=== PATIENT | male | born 1935 | race Caucasian/White ===

== ENCOUNTER 2016-11-10 12:25 | Observation (INO) | payer OTHER, MEDICARE ==
[~2016-11-10 12:25] MED LIST: ASPI81TA82 PO; ATEN-102 PO; ATOR40TA49 PO; CLOP75 PO; DOXY100T PO; PRIL20CA PO; SERT-129 PO; [UNRECOGNIZED DRUG - CODE] EX
[2016-11-10 12:27] VITALS: BP 155/74; PULSE 84; RESP 16; TEMP 98; O2SAT 99
[2016-11-10] MEDS ORDERED: SODIUM CHLORIDE 0.9% FLUSH 10 ML FLUSH IVF PRN (13:15)
--- NOTE | 2016-11-10 13:21 | PD ---
HPI Chief Complaint: Neuro Symptoms/ Deficits Time Seen by Provider: 13:17 Travel History International Travel<30 days: No Contact w/Intl Traveler<30days: No Traveled to known affect area: No History of Present Illness HPI 81-year-old male presents to the emergency department sent by physical therapy and primary care physician for evaluation of altered mental status. The patient states he has a history of dizziness that has been intermittent for several years. He states he was told he has "neurological problems". Patient states about 4 weeks ago, he thought he was coming down with a sinus infection. He was prescribed a Z-Angus. He states that approximately 2 weeks ago, he thought it was coming back and his dumpman prescribed him another Z-Angus. He took his last pill today. The patient states that on Thursday, he was laying in bed when he heard a loud noise. He states that due to history of PTSD , he jumped up. This is causing the fall hitting his nose against a nightstand. He reports subsequent nasal bleed. He denies LOC. He states he was able to get his nose to stop bleeding and washed his linens. His physical therapist thought he was slightly confused this morning and referred him to the emergency department. The patient does live alone. He is alert. He is oriented to person, place. He originally thought the year was 2011, but then realized it was 2017. Patient denies any other falls. No chest pain or shortness of breath. He reports abdominal pain only with coughing. No other symptoms. Patient does have history of CO with stent placement. He states that he takes a full aspirin daily. PFSH Past Medical History Anemia: Yes (IRON DEF) Blood Disorders: No Anxiety: No Depression: No Heart Rhythm Problems: Yes (BRADYCARDIA) Cancer: Yes (SKIN) High Cholesterol: No Chemotherapy: No Chest Pain: Yes Congestive Heart Failure: No Coronary Artery Disease: Yes Diminished Hearing: Yes (QAGAN TAYAGUNGIN, BILAT HEARING AIDS) Endocrine: No GERD: Yes Genitourinary: No Headaches: Yes Hypertension: Yes Immune Disorder: No Kidney Stones: Yes (X3) Neurologic: Yes (NEUROPATHY) Psychiatric: Yes (PSTD) Reproductive: No Respiratory: No Radiation Therapy: No ?: Not Past Surgical History Neurologic Surgery: Yes (BACK) Social History Alcohol Use: Yes (OCC) Tobacco Use: No Substance Use: No Allergies-Medications (Allergen,Severity, Reaction): Coded Allergies: Penicillin (Verified Allergy, Severe, Rash, 10/16/11) Reported Meds & Prescriptions Reported Meds & Active Scripts Active Reported Multiple Vitamin 1 Tab 1 Tab .ROUTE DAILY Protonix (Pantoprazole Sodium) 40 Mg Tab 40 PO DAILY Zoloft (Sertraline HCl) 100 Mg Tab 200 Mg PO DAILY Aspirin 325 Mg Tab 325 Mg PO DAILY Atenolol 50 Mg Tab 50 Mg PO DAILY Review of Systems Except as stated in HPI: all other systems reviewed are Neg Physical Exam Narrative GENERAL: Well-nourished, well-developed elderly male patient, afebrile. SKIN: Focused skin assessment warm/dry. HEAD: Normocephalic. Atraumatic. EYES: No scleral icterus. No injection or drainage. NECK: Supple, trachea midline. No JVD or lymphadenopathy. CARDIOVASCULAR: Regular rate and rhythm without murmurs, gallops, or rubs. RESPIRATORY: Breath sounds equal bilaterally. No accessory muscle use. Lungs sounds are clear to auscultation throughout. GASTROINTESTINAL: Abdomen soft, non-tender, nondistended. MUSCULOSKELETAL: No cyanosis, or edema. Bilateral upper and lower extremity strength 5/5. NEUROLOGICAL: Awake and alert. Cranial nerves II through XII intact. Motor and sensory grossly within normal limits. Five out of 5 muscle strength in all muscle groups. Normal speech. Finger to nose is normal bilaterally. Data Data Last Documented VS Vital Signs Date Time Temp Pulse Resp B/P Pulse Ox O2 Delivery O2 Flow Rate FiO2 11/10/16 14:50 98.1 53 18 137/65 97 Room Air Orders Electrocardiogram (11/10/16 13:15) Complete Blood Count With Diff (11/10/16 13:15) Comprehensive Metabolic Panel (11/10/16 13:15) Creatine Kinase (Cpk) (11/10/16 13:15) Troponin I (11/10/16 13:15) Urinalysis - C+S If Indicated (11/10/16 13:15) Chest, Single Ap (11/10/16 13:15) Ct Brain W/O Iv Contrast(Rout) (11/10/16 13:15) Blood Glucose (11/10/16 13:15) Ecg Monitoring (11/10/16 13:15) Iv Access Insert/Monitor (11/10/16 13:15) Oximetry (11/10/16 13:15) Sodium Chloride 0.9% Flush (Ns Flush) (11/10/16 13:15) Ct Facial Bones W/O Iv Cont (11/10/16 ) Labs Laboratory Tests Test 11/10/16 11/10/16 14:10 14:35 White Blood Count 6.8 TH/MM3 Red Blood Count 5.01 MIL/MM3 Hemoglobin 11.3 GM/DL Hematocrit 35.6 % Mean Corpuscular Volume 71.0 FL Mean Corpuscular Hemoglobin 22.5 PG Mean Corpuscular Hemoglobin 31.6 % Concent Red Cell Distribution Width 18.2 % Platelet Count 266 TH/MM3 Mean Platelet Volume 7.9 FL Neutrophils (%) (Auto) 65.5 % Lymphocytes (%) (Auto) 20.8 % Monocytes (%) (Auto) 9.0 % Eosinophils (%) (Auto) 3.9 % Basophils (%) (Auto) 0.8 % Neutrophils # (Auto) 4.5 TH/MM3 Lymphocytes # (Auto) 1.4 TH/MM3 Monocytes # (Auto) 0.6 TH/MM3 Eosinophils # (Auto) 0.3 TH/MM3 Basophils # (Auto) 0.1 TH/MM3 CBC Comment AUTO DIFF Differential Comment AUTO DIFF CONFIRMED Platelet Estimate NORMAL Platelet Morphology Comment NORMAL Sodium Level 140 MEQ/L Potassium Level 4.2 MEQ/L Chloride Level 106 MEQ/L Carbon Dioxide Level 25.7 MEQ/L Anion Gap 8 MEQ/L Blood Urea Nitrogen 14 MG/DL Creatinine 1.13 MG/DL Estimat Glomerular Filtration 62 ML/MIN Rate Random Glucose 100 MG/DL Calcium Level 9.3 MG/DL Total Bilirubin 0.5 MG/DL Aspartate Amino Transf 30 U/L (AST/SGOT) Alanine Aminotransferase 33 U/L (ALT/SGPT) Alkaline Phosphatase 70 U/L Total Creatine Kinase 216 U/L Troponin I 0.06 NG/ML Total Protein 7.3 GM/DL Albumin 3.6 GM/DL Urine Color YELLOW Urine Turbidity CLEAR Urine pH 5.0 Urine Specific [place] 1.021 Urine Protein TRACE mg/dL Urine Glucose (UA) NEG mg/dL Urine Ketones NEG mg/dL Urine Occult Blood NEG Urine Nitrite NEG Urine Bilirubin NEG Urine Urobilinogen LESS THAN 2.0 MG/DL Urine Leukocyte Esterase NEG Urine RBC 1 /hpf Urine WBC 3 /hpf Urine Sperm RARE Microscopic Urinalysis Comment CATH-CULT NOT IND MDM Medical Decision Making Medical Screen Exam Complete: Yes Emergency Medical Condition: Yes Medical Record Reviewed: Yes Interpretation(s) chest x-ray - CONCLUSION: No acute disease. CT brain - CONCLUSION: Negative for an acute process.. CT facial bones - CONCLUSION: 1. Negative MRI of the face. Exam is limited for lack of intravenous contrast. 2. There is some nonspecific adenopathy in both the right and left neck. Differential Diagnosis Closed head injury versus intracranial abnormality versus contusion versus fracture versus electrolyte abnormality Narrative Course 81 year-old male presents to the emergency department sent by physical therapy for slight confusion and fall on Thursday. EKG, CBC, CMP, troponin, CK, UA are ordered and pending. Chest x-ray is ordered and pending. CT of the brain and facial bones are ordered and pending. EKG shows sinus bradycardia, HR 53, with first degree AV block, no acute ST changes. CBC shows no acute abnormalities. CMP shows no acute abnormalities. CK is 216. Troponin is 0.06. UA is negative for acute infection. Chest x-ray shows no acute disease. CT of the brain is negative. CT of the facial bones is negative for fracture. Patient states he took ASA 325 mg PO this morning. Patient will be admitted for elevated troponin. My attending physician, Dr. Enrique, who agrees with plan and disposition. Residents are paged for admission. Dr. Owusu accepted admission. Diagnosis Primary Impression: Generalized weakness Additional Impression: Elevated troponin Admitting Information Admitting Physician Requests: Yin Contreras November 10, 2016 13:21
--- NOTE | 2016-11-10 13:48 | RADRPT ---
EXAM DATE/TIME: 11/10/2016 13:16 [facility] COMPARISON: No previous studies available for comparison. INDICATIONS : Syncope, congestion, short of breath MEDICAL HISTORY : None. SURGICAL HISTORY : None. ENCOUNTER: Initial ACUITY: 1 day PAIN SCORE: 0/10 LOCATION: Bilateral chest FINDINGS: A single view of the chest demonstrates the lungs to be symmetrically aerated without evidence of mas s, infiltrate or effusion. The cardiomediastinal contours are unremarkable. Bilateral total shoulde r arthroplasties are noted. CONCLUSION: No acute disease. Margarito Beatty MD FACR on November 10, 2016 at 13:45 Board Certified Radiologist. This report was verified electronically.
[2016-11-10 14:24] LABS: AUTOMATED NEUTROPHIL # 4.5 TH/MM3 (1.8-7.7); BASOPHIL # 0.1 TH/MM3 (0-0.2); BASOPHIL % 0.8 % (0.0-2.0); EOSINOPHIL # 0.3 TH/MM3 (0-0.4); EOSINOPHIL % 3.9 % (0.0-4.0); HEMATOCRIT 35.6 % (39.0-51.0); LYMPH % 20.8 % (9.0-44.0); LYMPHOCYTE # 1.4 TH/MM3 (1.0-4.8); MEAN CORPUSCULAR HEMOGLOBIN 22.5 PG (27.0-34.0); MEAN CORPUSCULAR HGB CONC 31.6 % (32.0-36.0); NEUT % 65.5 % (16.0-70.0); PLATELET COUNT 266 TH/MM3 (150-450); RED BLOOD COUNT 5.01 MIL/MM3 (4.50-5.90); RED CELL DISTRIBUTION WIDTH 18.2 % (11.6-17.2); WHITE BLOOD COUNT 6.8 TH/MM3 (4.0-11.0)
[2016-11-10 14:28] LABS: HEMO FLAGS AUTO DIFF
[2016-11-10 14:38] LABS: ANION GAP 8 MEQ/L (5-15); AST (GOT) 30 U/L (15-37); BICARBONATE 25.7 MEQ/L (21.0-32.0); BLOOD UREA NITROGEN 14 MG/DL (7-18); CHLORIDE 106 MEQ/L (98-107); GLOMERULAR FILTRATION RATE 62 ML/MIN (>89); POTASSIUM 4.2 MEQ/L (3.5-5.1); SODIUM (NA) 140 MEQ/L (136-145)
--- NOTE | 2016-11-10 14:41 | RADRPT ---
EXAM DATE/TIME: 11/10/2016 13:47 [facility] COMPARISON: No previous studies available for comparison. INDICATIONS : Altered mental status and fall two days ago. RADIATION DOSE: 44.10 CTDIvol (mGy) MEDICAL HISTORY : Myocardial infarction. hypertension, skin cancer SURGICAL HISTORY : None. ENCOUNTER: Initial ACUITY: 2 days PAIN SCALE: 6/10 LOCATION: Bilateral head TECHNIQUE: Multiple contiguous axial images were obtained of the head. Using automated exposure control and adj ustment of the mA and/or kV according to patient size, radiation dose was kept as low as reasonably a chievable to obtain optimal diagnostic quality images. FINDINGS: CEREBRUM: The ventricles are normal for age. No evidence of midline shift, mass lesion, hemorrhage or acute in farction. No extra-axial fluid collections are seen. POSTERIOR FOSSA: The cerebellum and brainstem are intact. The 4th ventricle is midline. The cerebellopontine angle i s unremarkable. EXTRACRANIAL: The visualized portion of the orbits is intact. SKULL: The calvaria is intact. No evidence of skull fracture. CONCLUSION: Negative for an acute process.. Margarito Beatty MD FACR on November 10, 2016 at 14:39 Board Certified Radiologist. This report was verified electronically.
[2016-11-10 14:43] LABS: ALKALINE PHOSPHATASE 70 U/L (45-117); ALT (GPT) 33 U/L (12-78); CREATINE KINASE 216 U/L (39-308); TOTAL BILIRUBIN ADULT 0.5 MG/DL (0.2-1.0)
[2016-11-10 14:50] VITALS: BP 137/65; PULSE 53; RESP 18; TEMP 98.1; O2SAT 97
--- NOTE | 2016-11-10 14:50 | RADRPT ---
EXAM DATE/TIME: 11/10/2016 13:47 [facility] COMPARISON: No previous studies available for comparison. INDICATIONS : Maxillary pain for one month. RADIATION DOSE: 62.22 CTDIvol (mGy) MEDICAL HISTORY : Myocardial infarction. hypertension, skin cancer SURGICAL HISTORY : None. ENCOUNTER: Initial ACUITY: 1 month PAIN SCORE: 7/10 LOCATION: Bilateral face TECHNIQUE: Volumetric scanning of the facial bones was performed. Using automated exposure contr ol and adjustment of the mA and/or kV according to patient size, radiation dose was kept as low as re asonably achievable to obtain optimal diagnostic quality images. FINDINGS: There is mucoperiosteal thickening in both maxillary sinuses. On this noncontrast study I do not see evidence for an infiltrative process. Lack of intravenous con trast does make detection of subtle abnormalities difficult in this patient with a history skin cance r. Exam with contrast or MRI with contrast would be of benefit if there is strong clinical concern of a neoplastic process particularly arising from one of the facial skin cancers. ORBITS: The orbital and infraorbital osseous structures are intact. The retroconal structures gaming ve a normal configuration. No radiopaque foreign bodies are seen. NASAL BONE: The nasal bone and maxillary spine are intact ZYGOMATIC ARCHES: Symmetric without evidence of fracture. SINUSES: The maxillary, ethmoid and frontal sinuses are intact. No air-fluid levels seen. NASAL CAVITY: The nasal septum is intact and midline. The lacrimal ducts are intact. SOFT TISSUES: No radiopaque foreign bodies seen. No soft-tissue swelling is seen. INTRACRANIAL: No intracranial air seen. CRIBIFORM PLATE: Grossly intact. CONCLUSION: 1. Negative non contrast CT of the face. Exam is limited for lack of intravenous contrast in this pa tient with a history of skin cancer. 2. There is some nonspecific adenopathy in both the right and left neck. 3. If there strong clinical concern of neoplastic process MRI with contrast would be of benefit. Margarito Beatty MD FACR on November 10, 2016 at 14:39 Board Certified Radiologist. This report was verified electronically.
[2016-11-10 15:04] LABS: PLATELET ESTIMATE SMEAR NORMAL (NORMAL); PLATELET MORPHOLOGY NORMAL (NORMAL); SCAN/DIFF AUTO DIFF CONFIRMED
[2016-11-10] MEDS ORDERED: ZOLO100T PO (15:18)
[2016-11-10] MEDS ORDERED: ASPI325T PO (15:18)
[2016-11-10] MEDS ORDERED: MULTTAB67 (15:18)
[2016-11-10] MEDS ORDERED: PROT40TA PO (15:18)
[2016-11-10] MEDS ORDERED: ATEN50TA PO (15:18)
[2016-11-10 15:26] LABS: BLOOD, URINE NEG (NEG); GLUCOSE,URINE NEG (NEG); KETONE, URINE NEG (NEG); NITRITE,URINE NEG (NEG); URINE COLOR YELLOW (YELLW/STRAW)
[2016-11-10 15:28] LABS: COMMENT (UR) CATH-CULT NOT IND; CULTURE IF INDICATED CATH CULTURE NOT IND
[2016-11-10] MEDS ORDERED: ONDANSETRON HCL 4 MG/2 ML VIAL IVP PRN (15:45)
[2016-11-10] MEDS ORDERED: NALOXONE HCL 0.4 MG/ML AMP IV PRN (15:45)
[2016-11-10] MEDS ORDERED: BISACODYL 10 MG SUPP RECTAL PRN (15:45)
[2016-11-10] MEDS ORDERED: SODIUM CHLORIDE 0.9% FLUSH 10 ML FLUSH IV FLUSH PRN (15:45)
--- NOTE | 2016-11-10 15:55 | HHI.HP ---
HPI Service [facility] Primary Care Physician [facility] Admission Diagnosis generalized weakness, elevated troponin Diagnoses: Chief Complaint: AMS, fall, congestion Travel History International Travel<30 Days: No Contact w/Intl Traveler <30 Da: No Traveled to Known Affected Are: No History of Present Illness 81-year-old male with history of CAD with stent, HTN, GERD, iron deficiency anemia, PTSD, GERD, bradycardia, presents from the [place] office today for evaluation of confusion. The patient reports he went to his scheduled physical therapy appointment today that he says was scheduled for 11 AM, however the [facility] had him scheduled for 1 PM. He states he thinks the staff thought he was confused. He then saw his PCP at the [facility] who advised him to come to the ER. The patient states that over the past month he has been battling a sinus infection, completed one Z-Angus a month ago, and finished another Z-Angus today. Patient also states that Thursday morning 11/08 at 5 AM, he was sleeping when he thought he heard a bomb go off, he jumped up out of bed and fell, hit his head on the nightstand with subsequent epistaxis that has now resolved. Denies loss of consciousness or neck pain. He states this episode is consistent with his PTSD "attacks". Patient states he uses a walker at baseline, and has to use a wheelchair for long distances. Patient further describes his sinus infection as constant congestion with occasional rhinitis, scratchy throat, and nonproductive cough. He denies fevers/chills. He denies any chest pain. He reports chronic shortness of breath with exertion, but denies lower extremity edema and orthopnea. He denies any history of CHF. He states he has not had to follow with cardiology as he has had no problems since his stent was placed back in 2011. He has no other medical complaints at this time. Review of Systems Except as stated in HPI: all other systems reviewed are Neg Past Family Social History Past Medical History CAD with stents hypertension GERD iron deficiency anemia skin cancer bradycardia Nephrolithiasis PTSD [place] with bilateral hearing aids Colon polyps Agent orange exposure in the Past Surgical History Cardiac catheterization with stent placement Melanoma resection from the back Total knee arthroplasty of both knees 2006 at [facility] Shoulder replacement bilaterally 2014, 2016 at [facility] Colonoscopy with polyp resection x3 Tonsillectomy (on the day WWII started) Reported Medications Multiple Vitamin 1 Tab 1 Tab .ROUTE DAILY Protonix (Pantoprazole Sodium) 40 Mg Tab 40 PO DAILY Zoloft (Sertraline HCl) 100 Mg Tab 200 Mg PO DAILY Aspirin 325 Mg Tab 325 Mg PO DAILY Atenolol 50 Mg Tab 50 Mg PO DAILY Allergies: Coded Allergies: Penicillin (Verified Allergy, Severe, Rash, 10/16/11) Active Ordered Medications Current Medications Medications (Trade) Dose Ordered Sig/Francisca Route Start Time Stop Time Status Last Admin (NS Flush) 2 ml UNSCH PRN IV FLUSH 11/10/16 15:45 (NS Flush) 2 ml BID IV FLUSH 11/10/16 21:00 (Zofran Inj) 4 mg Q6H PRN IVP 11/10/16 15:45 (Dulcolax Supp) 10 mg DAILY PRN RECTAL 11/10/16 15:45 (Lovenox Inj) 40 mg Q24H SQ 11/10/16 16:00 (Narcan Inj) 0.4 mg UNSCH PRN IV 11/10/16 15:45 Family History Mother with pancreatic cancer Father with diabetes mellitus type 2, with TB Social History Denies tobacco use Occasional alcohol use, has 1 [employer] 1-2x per month Denies illicit drug use Lives alone, has a son who lives locally Uses walker at baseline, and wheelchair for long distances Physical Exam Vital Signs Vital Signs Date Time Temp Pulse Resp B/P Pulse Ox O2 Delivery O2 Flow Rate FiO2 11/10/16 14:50 98.1 53 18 137/65 97 Room Air 11/10/16 13:00 97 Room Air 11/10/16 12:27 98.0 84 16 155/74 99 Physical Exam GENERAL: Well-nourished, well-developed pleasant elderly male patient in NAD. Awake, alert, oriented x4. SKIN: Warm and dry. No rash. HEAD: Normocephalic. Atraumatic. EYES: Pupils equal and round. No scleral icterus. No injection or drainage. ENT: No nasal bleeding or discharge. No nasal mucosa edema/polyps. Mucous membranes pink and moist. Oropharynx clear, no tonsillar edema/exudate. NECK: Supple. Trachea midline. CARDIOVASCULAR: Regular rate and rhythm. S1, S2 noted. No murmur appreciated. RESPIRATORY: No accessory muscle use. Clear to auscultation. Breath sounds equal bilaterally. GASTROINTESTINAL: Abdomen soft, non-tender, nondistended. Normoactive bowel sounds x4. MUSCULOSKELETAL: No obvious deformities. Extremities without clubbing, cyanosis , or edema. NEUROLOGICAL: Awake and alert. No obvious cranial nerve deficits. Motor grossly within normal limits. 5/5 muscle strength in bilateral upper and lower extremities. Normal speech. PSYCHIATRIC: Appropriate mood and affect; insight and judgment normal. Laboratory Laboratory Tests Test 11/10/16 11/10/16 14:10 14:35 White Blood Count 6.8 Red Blood Count 5.01 Hemoglobin 11.3 Hematocrit 35.6 Mean Corpuscular Volume 71.0 Mean Corpuscular Hemoglobin 22.5 Mean Corpuscular Hemoglobin 31.6 Concent Red Cell Distribution Width 18.2 Platelet Count 266 Mean Platelet Volume 7.9 Neutrophils (%) (Auto) 65.5 Lymphocytes (%) (Auto) 20.8 Monocytes (%) (Auto) 9.0 Eosinophils (%) (Auto) 3.9 Basophils (%) (Auto) 0.8 Neutrophils # (Auto) 4.5 Lymphocytes # (Auto) 1.4 Monocytes # (Auto) 0.6 Eosinophils # (Auto) 0.3 Basophils # (Auto) 0.1 CBC Comment AUTO DIFF Differential Comment AUTO DIFF CONFIRMED Platelet Estimate NORMAL Platelet Morphology Comment NORMAL Sodium Level 140 Potassium Level 4.2 Chloride Level 106 Carbon Dioxide Level 25.7 Anion Gap 8 Blood Urea Nitrogen 14 Creatinine 1.13 Estimat Glomerular Filtration 62 Rate Random Glucose 100 Calcium Level 9.3 Total Bilirubin 0.5 Aspartate Amino Transf 30 (AST/SGOT) Alanine Aminotransferase 33 (ALT/SGPT) Alkaline Phosphatase 70 Total Creatine Kinase 216 Troponin I 0.06 Total Protein 7.3 Albumin 3.6 Urine Color YELLOW Urine Turbidity CLEAR Urine pH 5.0 Urine Specific [place] 1.021 Urine Protein TRACE Urine Glucose (UA) NEG Urine Ketones NEG Urine Occult Blood NEG Urine Nitrite NEG Urine Bilirubin NEG Urine Urobilinogen LESS THAN 2.0 Urine Leukocyte Esterase NEG Urine RBC 1 Urine WBC 3 Urine Sperm RARE Microscopic Urinalysis Comment CATH-CULT NOT IND Result Diagram: 11/10/16 1410 11/10/16 1410 Imaging Last Impressions Head CT 11/10/16 1315 Signed Impressions: Service Date/Time: Thursday, November 10, 2016 13:47 - CONCLUSION: Negative for an acute process.. Margarito Beatty MD FACR Chest X-Ray 11/10/16 1315 Signed Impressions: Service Date/Time: Thursday, November 10, 2016 13:16 - CONCLUSION: No acute disease. Margarito Beatty MD FACR Maxillofacial CT 11/10/16 0000 Signed Impressions: Service Date/Time: Thursday, November 10, 2016 13:47 - CONCLUSION: 1. Negative non contrast CT of the face. Exam is limited for lack of intravenous contrast in this patient with a history of skin cancer. 2. There is some nonspecific adenopathy in both the right and left neck. 3. If there strong clinical concern of neoplastic process MRI with contrast would be of benefit. Margarito Beatty MD FACR Assessment and Plan Problem List: (1) Confusion ICD Code: R41.0 Status: Acute (2) Elevated troponin ICD Code: R74.8 Status: Acute Assessment and Plan 81-year-old male with history of CAD with stent, HTN, GERD, iron deficiency anemia, PTSD, GERD, bradycardia, presents from the [place] office today for evaluation of confusion. Acute Confusion: Resolved quickly, patient is now AAOx4. Possibly related to recent fall/PTSD episode vs recent infection vs underlying undiagnosed dementia. Head CT images reviewed, no acute findings. CT maxillofacial unremarkable for acute findings, does show some nonspecific adenopathy at left and right neck. Continue neuro checks. Monitor on telemetry. Elevated Troponin with hx of CAD w/stent: unclear etiology. No chest pain reported. Troponin elevated at 0.06. EKG reviewed, shows sinus joe, HR 54, no acute ST changes. Rule out ACS, Trend serial cardiac enzymes and EKGs. Continue patient's aspirin. Nitro prn and IV morphine prn. O2 prn. Continue patient's BB , decrease atenolol dose to 25mg daily with bradycardia. Sinus Bradycardia: patient reports bradycardia for many years. On atenolol 50mg qd at home, will restart at decreased dose of 25mg qd. Monitor on telemetry. Fall: on Wednesday 11/08. Head and Maxillofacial CT negative as above. Consult PT. Patient uses walker at baseline and wheelchair for long distances. Microcytic Anemia: patient reports history of iron deficiency anemia. Check iron studies in am. Chronic Sinusitis: symptoms seem to be improving, recently completed 2 round of Z-Angus antibiotics. No leukocytosis, afebrile. DVT Prophylaxis: Lovenox Discussed with Dr. Owusu. Discussed Condition With Patient, ER Staff Attending Statement The exam, history, and the medical decision-making described in the above note were completed with the assistance of the mid-level provider. I reviewed and agree with the findings presented. I attest that I had a [id number] encounter with the patient on the same day, and personally performed and documented my assessment and findings in the medical record. Patient denies any current symptoms. Symptoms happened when patient episode PTSD. He denies chest pain, palpitation, shortness of breathing, nausea vomiting or any pain at all. At the moment patient has no complaints. Gen NAD resp CTA B/L Cv RRR. no r/m/g Abd soft NDNT Neuro AAO X 3. CN 2-12 intact. motor and sensory is grossly intact. A/P Acute confusion most likely due to PTSD asymptomatic mild elevated troponin asymptomatic will trend and continue home meds. bradycardia most likely medication induced asymptomatic decrease atenolol as tolerated. will try to keep beta alix since patient has CAD. Isha Ferrell PA-C November 10, 2016 15:55 Sol Owusu MD November 10, 2016 17:23
[2016-11-10] MEDS ORDERED: ENOXAPARIN SODIUM 40 MG/0.4 ML SYRINGE SQ SCH (16:00)
[2016-11-10] MEDS ORDERED: ACETAMINOPHEN/HYDROcodone 325 MG/5 MG TAB PO PRN (17:00)
[2016-11-10] MEDS ORDERED: MORPHINE SULFATE 4 MG/ML INJ IV PRN (17:00)
[2016-11-10] MEDS ORDERED: DOCUSATE SODIUM 100 MG CAP PO PRN (17:00)
[2016-11-10] MEDS ORDERED: ACETAMINOPHEN 325 MG TAB PO PRN (17:00)
[2016-11-10] MEDS ORDERED: NITROGLYCERIN 0.4 MG SL 25 TABS/BTL SL PRN (17:00)
[2016-11-10 17:57] VITALS: RESP 16; O2SAT 96
[2016-11-10 18:17] VITALS: BP 124/63; PULSE 71; RESP 20; TEMP 98.4; O2SAT 96
[2016-11-10 19:29] VITALS: BP 95/54; PULSE 58; RESP 18; TEMP 97.8; O2SAT 97
[2016-11-10] MEDS: SODIUM CHLORIDE 0.9% FLUSH 10 ML FLUSH IV FLUSH SCH (20:50)
[2016-11-10 23:15] VITALS: BP 112/59; PULSE 59; RESP 18; TEMP 98; O2SAT 96
[2016-11-11 04:20] LABS: BASOPHIL # 0.1 TH/MM3 (0-0.2); BASOPHIL % 1.2 % (0.0-2.0); EOSINOPHIL # 0.3 TH/MM3 (0-0.4); EOSINOPHIL % 5.2 % (0.0-4.0); HEMATOCRIT 34.6 % (39.0-51.0); LYMPH % 34.5 % (9.0-44.0); LYMPHOCYTE # 2.1 TH/MM3 (1.0-4.8); MEAN CELL VOLUME 71.7 FL (80.0-100.0); MEAN CORPUSCULAR HEMOGLOBIN 22.2 PG (27.0-34.0); MONO % 9.8 % (0.0-8.0); NEUT % 49.3 % (16.0-70.0); PLATELET COUNT 238 TH/MM3 (150-450); RED BLOOD COUNT 4.83 MIL/MM3 (4.50-5.90); RED CELL DISTRIBUTION WIDTH 18.3 % (11.6-17.2); WHITE BLOOD COUNT 6.2 TH/MM3 (4.0-11.0)
[2016-11-11 04:21] VITALS: BP 114/60; PULSE 52; RESP 18; TEMP 98.6; O2SAT 98
[2016-11-11 04:27] LABS: HEMO FLAGS AUTO DIFF
[2016-11-11 04:58] LABS: ANION GAP 7 MEQ/L (5-15); BICARBONATE 27.7 MEQ/L (21.0-32.0); BLOOD UREA NITROGEN 16 MG/DL (7-18); CHLORIDE 108 MEQ/L (98-107); FERRITIN 15 NG/ML (26-388); GLOMERULAR FILTRATION RATE 59 ML/MIN (>89); POTASSIUM 3.9 MEQ/L (3.5-5.1); SODIUM (NA) 143 MEQ/L (136-145); TRANSFERRIN IRON PROFILE 284 MG/DL (200-360)
[2016-11-11 06:53] LABS: SCAN/DIFF AUTO DIFF CONFIRMED
[2016-11-11 08:04] VITALS: BP 115/65; PULSE 50; RESP 23; TEMP 98; O2SAT 96
[2016-11-11] MEDS ORDERED: ATENOLOL 50 MG TAB PO SCH (09:00)
[2016-11-11] MEDS ORDERED: ATENOLOL 25 MG TAB PO SCH (09:00)
[2016-11-11] MEDS ORDERED: SERTRALINE HCL 100 MG TAB PO SCH (09:00)
[2016-11-11] MEDS ORDERED: ASPIRIN 325 MG TAB PO SCH (09:00)
[2016-11-11] MEDS: SODIUM CHLORIDE 0.9% FLUSH 10 ML FLUSH IV FLUSH SCH (09:24)
[2016-11-11] MEDS ORDERED: PANTOPRAZOLE SOD 40 MG DELAYED RELEASE TAB PO SCH (09:30)
[2016-11-11] MEDS ORDERED: ATEN25TA PO (10:20)
[2016-11-11] MEDS ORDERED: FERR325T PO (10:20)
--- NOTE | 2016-11-11 10:21 | HHI.DCPOC ---
Discharge Care Plan Diagnosis: (1) Elevated troponin (2) Confusion (3) Generalized weakness Goals to Promote Your Health * To prevent worsening of your condition and complications * To maintain your health at the optimal level Directions to Meet Your Goals Take your medications as prescribed Follow your dietary instruction Follow activity as directed Keep your appointments as scheduled Take your immunizations and boosters as scheduled If your symptoms worsen call your PCP, if no PCP go to Urgent Care Center or Emergency Room Smoking is Dangerous to Your Health. Avoid second hand smoke Call the 24-hour hour crisis hotline for domestic abuse at Sol Owusu MD November 11, 2016 10:21
--- NOTE | 2016-11-11 10:22 | HHI.DS ---
Discharge Summary Admission Date November 10, 2016 at 15:32 Discharge Date: November 11, 2016 Admitting Diagnosis generalized weakness, elevated troponin (1) Confusion ICD Code: R41.0 Diagnosis: Principal (2) Elevated troponin ICD Code: R74.8 Diagnosis: Principal (3) Bradycardia ICD Code: R00.1 Diagnosis: Principal Procedures none Brief History - From Admission 81-year-old male with history of CAD with stent, HTN, GERD, iron deficiency anemia, PTSD, GERD, bradycardia, presents from the [place] office today for evaluation of confusion. The patient reports he went to his scheduled physical therapy appointment today that he says was scheduled for 11 AM, however [facility] He states he thinks the staff thought he was confused. He then saw his PCP at the [place] who advised him to come to the ER. The patient states that over the past month he has been battling a sinus infection, completed one Z-Angus a month ago, and finished another Z-Angus today. Patient also states that Thursday morning 11/08 at 5 AM, he was sleeping when he thought he heard a bomb go off, he jumped up out of bed and fell, hit his head on the nightstand with subsequent epistaxis that has now resolved. Denies loss of consciousness or neck pain. He states this episode is consistent with his PTSD "attacks". Patient states he uses a walker at baseline, and has to use a wheelchair for long distances. Patient further describes his sinus infection as constant congestion with occasional rhinitis, scratchy throat, and nonproductive cough. He denies fevers/chills. He denies any chest pain. He reports chronic shortness of breath with exertion, but denies lower extremity edema and orthopnea. He denies any history of CHF. He states he has not had to follow with cardiology as he has had no problems since his stent was placed back in 2011. He has no other medical complaints at this time. CBC/BMP: 11/11/16 0352 11/11/16 0352 Significant Findings Laboratory Tests Test 11/10/16 11/10/16 11/10/16 11/11/16 14:10 14:35 21:20 03:52 Hemoglobin 11.3 GM/DL 10.7 GM/DL (13.0-17.0) (13.0-17.0) Hematocrit 35.6 % 34.6 % (39.0-51.0) (39.0-51.0) Mean Corpuscular Volume 71.0 FL 71.7 FL (80.0-100.0) (80.0-100.0) Mean Corpuscular Hemoglobin 22.5 PG 22.2 PG (27.0-34.0) (27.0-34.0) Mean Corpuscular Hemoglobin 31.6 % 31.0 % Concent (32.0-36.0) (32.0-36.0) Red Cell Distribution Width 18.2 % 18.3 % (11.6-17.2) (11.6-17.2) Monocytes (%) (Auto) 9.0 % (0.0-8.0) 9.8 % (0.0-8.0) Estimat Glomerular Filtration 62 ML/MIN (>89) 59 ML/MIN (>89) Rate Troponin I 0.06 NG/ML 0.06 NG/ML (0.02-0.05) (0.02-0.05) Urine Sperm RARE (NONE) Eosinophils (%) (Auto) 5.2 % (0.0-4.0) Chloride Level 108 MEQ/L (98-107) Random Glucose 108 MG/DL (74-106) Iron Level 24 MCG/DL (65-175) Percent Iron Saturation 6.0 % (20-50) Ferritin 15 NG/ML (26-388) Imaging Last Impressions Head CT 11/10/161314 Signed Impressions: Service Date/Time: Thursday, November 10, 2016 13:47 - CONCLUSION: Negative for an acute process.. Margarito Beatty MD FACR Chest X-Ray 11/10/161314 Signed Impressions: Service Date/Time: Thursday, November 10, 2016 13:16 - CONCLUSION: No acute disease. Margarito Beatty MD FACR Maxillofacial CT 11/10/16 0000 Signed Impressions: Service Date/Time: Thursday, November 10, 2016 13:47 - CONCLUSION: 1. Negative non contrast CT of the face. Exam is limited for lack of intravenous contrast in this patient with a history of skin cancer. 2. There is some nonspecific adenopathy in both the right and left neck. 3. If there strong clinical concern of neoplastic process MRI with contrast would be of benefit. Margarito Beatty MD FACR PE at Discharge GENERAL: in NAD NECK: Supple, trachea midline. No JVD or lymphadenopathy. CARDIOVASCULAR: Regular rate and rhythm without murmurs, gallops, or rubs. RESPIRATORY: Breath sounds equal bilaterally. No accessory muscle use. GASTROINTESTINAL: Abdomen soft, non-tender, nondistended. MUSCULOSKELETAL: No cyanosis, or edema. BACK: Nontender without obvious deformity. No CVA tenderness. Pt update on day of discharge Follow-up for acute confusion that resolved before his hospitalization. Patient has no complaints he stated that he is doing extremely well. Denies any chest pain, palpitation, soreness of breathing. Patient is ambulating in hallways by himself. He stated when he is ambulating he is also asymptomatic. Patient stated that he was put on atenolol secondary to arrhythmias. Hospital Course 81-year-old male with history of CAD with stent, HTN, GERD, iron deficiency anemia, PTSD, GERD, bradycardia, presents from the [place] office today for evaluation of confusion. Acute Confusion: Resolved quickly, patient is now AAOx4. Possibly related to recent fall/PTSD episode vs recent infection vs underlying undiagnosed dementia. Head CT images reviewed, no acute findings. CT maxillofacial unremarkable for acute findings, does show some nonspecific adenopathy at left and right neck. Continue neuro checks. No events over telemetry. Although there are lots of artifact over his telemetry. I discussed this with the nurse operations research manager and charge nurse in regards to this and stated that this needs to be corrected. Patient was completely asymptomatic during his hospitalization. Elevated Troponin with hx of CAD w/stent: unclear etiology. No chest pain reported. Troponin elevated at 0.06. EKG reviewed, shows sinus joe, HR 54, no acute ST changes. Rule out ACS, Trend serial cardiac enzymes and EKGs. Continue patient's aspirin. Nitro prn and IV morphine prn. O2 prn. During his hospitalization he was asymptomatic. Troponins were stable and last from was 0.05.. Sinus Bradycardia: patient reports bradycardia for many years. On atenolol 50mg qd at home, so his doses was decreased to 25 mg by mouth daily. Patient was asymptomatic. Atenolol was continued due to his history of arrhythmias and per patient his PCP wants him to remain on atenolol. Patient told to follow-up with his PCP in regards to this. Fall: on Wednesday 11/08. Head and Maxillofacial CT negative as above. Patient uses walker at baseline and wheelchair for long distances. PT was consulted and patient was walking down the hallways no difficulty. Per PT they recommend a wheeled walker which patient does have a home already. Microcytic Anemia: patient reports history of iron deficiency anemia. Iron studies were completed with suggests iron deficiency anemia. Patient was started on iron supplements. Chronic Sinusitis: symptoms seem to be improving, recently completed 2 round of Z-Angus antibiotics. No leukocytosis, afebrile. Pt Condition on Discharge: Good Discharge Disposition: Discharge Home Discharge Time: > 30 minutes Discharge Instructions DIET: Follow Instructions for: Heart Healthy Diet Activities you can perform: Regular-No Restrictions Follow up Referrals: PCP Follow-up - 1 Week New Medications: Ferrous Sulfate (Ferrous Sulfate) 325 Mg Tab 325 MG PO BID iron deficency anemia #30 Ref 0 TAB Atenolol (Atenolol) 25 Mg Tab 25 MG PO DAILY abnormal rythm #30 Ref 0 TAB Continued Medications: Aspirin (Aspirin) 325 Mg Tab 325 MG PO DAILY #30 Ref 0 TAB Multiple Vitamin (Multiple Vitamin) 1 Tab 1 TAB .ROUTE DAILY Nutritional Supplement Ref 0 TAB Pantoprazole (Protonix) 40 Mg Tab 40 PO DAILY Reflux #30 Ref 0 TAB Sertraline (Zoloft) 100 Mg Tab 200 MG PO DAILY #30 Ref 0 TAB Discontinued Medications: Atenolol (Atenolol) 50 Mg Tab 50 MG PO DAILY Blood Pressure Management #30 Ref 0 TAB Sol Owusu MD November 11, 2016 10:22
[2016-11-11] MEDS ORDERED: FERROUS SULFATE 325 MG (65 MG ELEMENTAL IRON) TAB PO SCH (12:00)
--- NOTE | 2016-11-11 17:11 | EKG ---
Date Performed: 11/10/2016 Time Performed: 14:42:16 PTAGE: 81 years EKG: SINUS BRADYCARDIA WITH FIRST DEGREE AV BLOCK VOLTAGE CRITERIA FOR LVH INFERIOR MYOCARDIAL I NFARCTION ABNORMAL ECG Compared to PREVIOUS TRACING , the first degree AV block is now more prominent with longer [place] interva ls at 316 milliseconds. PREVIOUS TRACING on 10/17/2011 05.58.32 DOCTOR: Luci Clay Interpretating Date/Time 11/11/2016 17:11:01
== END 2016-11-11 11:29 | disposition home or self-care (01) ==
LOC: NEPD 12:25 → NEDA 15:32 → NEPGCP 18:00
PROVIDERS: ADMIT Family Medicine; ATTEND Family Medicine
DX: R41.0 Disorientation, unspecified (principal); R79.89 Other specified abnormal findings of blood chemistry; R00.1 Bradycardia, unspecified; D50.9 Iron deficiency anemia, unspecified; J32.9 Chronic sinusitis, unspecified; F43.10 Post-traumatic stress disorder, unspecified; I25.2 Old myocardial infarction; I25.10 Atherosclerotic heart disease of native coronary artery without angina pectoris; I10 Essential (primary) hypertension; K21.9 Gastro-esophageal reflux disease without esophagitis; G62.9 Polyneuropathy, unspecified; Z95.5 Presence of coronary angioplasty implant and graft; Z85.820 Personal history of malignant melanoma of skin; Z96.612 Presence of left artificial shoulder joint; Z96.611 Presence of right artificial shoulder joint; Z79.82 Long term (current) use of aspirin; Z88.0 Allergy status to penicillin; Z85.828 Personal history of other malignant neoplasm of skin; Z91.81 History of falling
CPT/HCPCS: 70450; 70486; 71010; 80048; 80053; 81001; 82550; 82728; 83540; 83550; 84484; 85025; 93005; 97162; 99285; G0378; G8987; G8988; J1650

== ENCOUNTER 2017-12-15 16:39 | Inpatient (IN) | payer MEDICARE, OTHER ==
[~2017-12-15] VITALS: Ht 177.8 cm; Wt 89.2 kg
[~2017-12-15 16:39] MED LIST changes: +ASPI-183 PO; -ASPI81TA82 PO; -ATEN-102 PO; +ATEN25TA PO; -ATOR40TA49 PO; -CLOP75 PO; -DOXY100T PO; +FERR325T PO; +MULTTAB67; -PRIL20CA PO; +PROT40TA PO; -SERT-129 PO; +ZOLO100T PO; -[UNRECOGNIZED DRUG - CODE] EX
[2017-12-15 16:45] VITALS: BP 136/103; PULSE 112; RESP 16; O2SAT 98
[2017-12-15] MEDS ORDERED: FERR325T18 PO (16:55)
[2017-12-15] MEDS ORDERED: ASPI81CH6 CHEW (16:55)
[2017-12-15] MEDS ORDERED: CURCPOW (16:55)
[2017-12-15] MEDS ORDERED: SODIUM CHLORID 0.9% 500 ML INJ 500 ML IV ONE (17:00)
[2017-12-15] MEDS ORDERED: SODIUM CHLORIDE 0.9% FLUSH 10 ML FLUSH IVF PRN (17:00)
[2017-12-15] MEDS ORDERED: ASPIRIN 81 MG CHEW TAB PO ONE (17:00)
--- NOTE | 2017-12-15 17:00 | PD ---
HPI Chief Complaint: Syncope/Near-Syncope Time Seen by Provider: 16:43 Travel History International Travel<30 days: No Contact w/Intl Traveler<30days: No Traveled to known affect area: No History of Present Illness HPI The patient is a 82-year-old male who presents to the emergency department for low heart rate associated with lightheadedness, dizziness, mild shortness of breath. The patient states he noticed his heart rate was low earlier today, between 40 and 50, most of the day. The patient states he would stand upright and he would get slightly lightheaded, mild shortness of breath when he was walking from the parking lot into the emergency department. He denies any chest pain. He does note a history of fast and slow heartbeats in the past, however, does not currently have a pacemaker in place. The patient is followed at the [place] [facility]. He denies any chest pain, shortness breath, nausea, vomiting, or diaphoresis upon interviewing room [place] [id number]. He denies any history of pulmonary embolism, DVT, recent lower extremity edema. Symptoms are moderate. There are no current alleviating or exacerbating factors. 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 ) Cardiac Catheterization: Yes Cardiovascular Problems: Yes High Cholesterol: No Chemotherapy: No Chest Pain: Yes Congestive Heart Failure: No Coronary Artery Disease: Yes Diabetes: No Diminished Hearing: Yes (uses hearing aides) Endocrine: No GERD: Yes Genitourinary: No Headaches: Yes Hypertension: Yes Immune Disorder: No Kidney Stones: Yes Musculoskeletal: Yes (bilat knee and shoulder replaced) Neurologic: Yes (NEUROPATHY) Psychiatric: Yes (PSTD) Reproductive: No Respiratory: No Immunizations Current: Yes Myocardial Infarction: Yes Radiation Therapy: No Past Surgical History Cardiac Surgery: Yes (stent ) Eye Surgery: Yes (cataracts removed) Genitourinary Surgery: Yes (kidney stones) Neurologic Surgery: Yes (BACK) Oral Surgery: Yes (tonsillectomy) Tonsillectomy: Yes Social History Alcohol Use: Yes Tobacco Use: No Substance Use: No Allergies-Medications (Allergen,Severity, Reaction): Coded Allergies: penicillin G (Unverified Allergy, Severe, Rash, 12/15/17) atorvastatin (Verified Allergy, Unknown, 12/15/17) levofloxacin (Verified Allergy, Unknown, 12/15/17) simvastatin (Verified Allergy, Unknown, 12/15/17) Reported Meds & Prescriptions Reported Meds & Active Scripts Active Reported Curcumin (Turmeric (Curcuma Longa) (Bulk) 95 % Pow Ferrous Sulfate 325 Mg (65 Mg Iron) Tablet 325 Mg PO DAILY Aspirin Low Dose (Aspirin) 81 Mg Chew 81 Mg CHEW DAILY Multiple Vitamin 1 Tab 1 Tab .ROUTE DAILY Protonix (Pantoprazole Sodium) 40 Mg Tab 40 PO DAILY Zoloft (Sertraline HCl) 100 Mg Tab 200 Mg PO DAILY Review of Systems Except as stated in HPI: all other systems reviewed are Neg General / Constitutional: No: Fever Cardiovascular: Positive: Tachycardia, Other (Heart rate in the 40s and 50s earlier today), No: Chest Pain or Discomfort, Diaphoresis Respiratory: Positive: Shortness of Breath (Shortness of breath while walking from the parking lot into the emergency department, resolved) Gastrointestinal: No: Nausea, Vomiting, Abdominal Pain Musculoskeletal: No: Edema Neurologic: No: Syncope, Focal Abnormalities Physical Exam Narrative GENERAL: Awake, alert, pleasant 82-year-old male who appears his stated age and is in no acute respiratory distress. SKIN: Focused skin assessment warm/dry. HEAD: Atraumatic. Normocephalic. EYES: No injection or drainage. ENT: No nasal bleeding or discharge. Mucous membranes pink and moist. NECK: Trachea midline. No JVD. CARDIOVASCULAR: Regular, tachycardic with a heart rate of 110. RESPIRATORY: No accessory muscle use. Clear to auscultation. Breath sounds equal bilaterally. GASTROINTESTINAL: Abdomen soft, non-tender, nondistended. No rebound tenderness. MUSCULOSKELETAL: No obvious deformities. No clubbing. No cyanosis. No edema. NEUROLOGICAL: Awake and alert. No obvious cranial nerve deficits. Motor grossly within normal limits. Normal speech. Nonfocal. Oriented 4. PSYCHIATRIC: Appropriate mood and affect; insight and judgment normal. Data Data Last Documented VS Vital Signs Date Time Temp Pulse Resp B/P (MAP) Pulse Ox O2 Delivery O2 Flow Rate FiO2 12/15/17 17:28 115/82 (93) 130/74 (92) 12/15/17 17:28 70 126 12/15/17 17:09 98.7 12/15/17 16:45 16 98 Orders Orders Electrocardiogram (12/15/17 16:54) B-Type Natriuretic Peptide (12/15/17 16:54) Ckmb (Isoenzyme) Profile (12/15/17 16:54) Complete Blood Count With Diff (12/15/17 16:54) Comprehensive Metabolic Panel (12/15/17 16:54) Magnesium (Mg) (12/15/17 16:54) Prothrombin Time / Inr (Pt) (12/15/17 16:54) Act Partial Throm Time (Ptt) (12/15/17 16:54) Troponin I (12/15/17 16:54) Ecg Monitoring (12/15/17 16:54) Bilateral Bp Monitoring (12/15/17 16:54) Iv Access Insert/Monitor (12/15/17 16:54) Oximetry (12/15/17 16:54) Oxygen Administration (12/15/17 16:54) Aspirin Chew (Aspirin Chew) (12/15/17 17:00) Sodium Chloride 0.9% Flush (Ns Flush) (12/15/17 17:00) Sodium Chlorid 0.9% 500 Ml Inj (Ns 500 M (12/15/17 17:00) Chest, Pa & Lat (12/15/17 16:54) Orthostatic Vital Signs (12/15/17 16:54) Electrocardiogram (12/15/17 ) CKMB (12/15/17 16:55) CKMB% (12/15/17 16:55) Admit Order (Ed Use Only) (12/15/17 18:37) Labs Laboratory Tests Test 12/15/17 16:55 White Blood Count 9.7 TH/MM3 Red Blood Count 5.82 MIL/MM3 Hemoglobin 15.9 GM/DL Hematocrit 47.4 % Mean Corpuscular Volume 81.4 FL Mean Corpuscular Hemoglobin 27.3 PG Mean Corpuscular Hemoglobin Concent 33.5 % Red Cell Distribution Width 17.3 % Platelet Count 244 TH/MM3 Mean Platelet Volume 8.0 FL Neutrophils (%) (Auto) 62.9 % Lymphocytes (%) (Auto) 27.2 % Monocytes (%) (Auto) 6.9 % Eosinophils (%) (Auto) 2.3 % Basophils (%) (Auto) 0.7 % Neutrophils # (Auto) 6.1 TH/MM3 Lymphocytes # (Auto) 2.6 TH/MM3 Monocytes # (Auto) 0.7 TH/MM3 Eosinophils # (Auto) 0.2 TH/MM3 Basophils # (Auto) 0.1 TH/MM3 CBC Comment DIFF FINAL Differential Comment Prothrombin Time 10.4 SEC Prothromb Time International Ratio 1.0 RATIO Activated Partial Thromboplast Time 26.9 SEC Blood Urea Nitrogen 14 MG/DL Creatinine 1.19 MG/DL Random Glucose 172 MG/DL Total Protein 8.2 GM/DL Albumin 4.4 GM/DL Calcium Level 9.6 MG/DL Magnesium Level 2.2 MG/DL Alkaline Phosphatase 76 U/L Aspartate Amino Transf (AST/SGOT) 22 U/L Alanine Aminotransferase (ALT/SGPT) 33 U/L Total Bilirubin 0.9 MG/DL Sodium Level 138 MEQ/L Potassium Level 3.5 MEQ/L Chloride Level 103 MEQ/L Carbon Dioxide Level 22.6 MEQ/L Anion Gap 12 MEQ/L Estimat Glomerular Filtration Rate 58 ML/MIN Total Creatine Kinase 101 U/L Creatine Kinase MB 2.8 NG/ML Troponin I 0.02 NG/ML B-Type Natriuretic Peptide 46 PG/ML MDM Medical Decision Making Medical Screen Exam Complete: Yes Emergency Medical Condition: Yes Medical Record Reviewed: Yes Interpretation(s) EKG reveals supraventricular tachycardia with a heart rate of 110. No obvious P -wave. Q-wave noted in lead III and aVF. EKG #2 reveals sinus rhythm with possible second-degree block versus first- degree block with significant prolonged NJ interval and underlying sinus arrhythmia. Last Impressions Chest X-Ray 12/15/17 1004 Signed Impressions: CONCLUSION: 1. No evidence of acute cardiopulmonary process. 2. Status post bilateral shoulder replacements. Laboratory Tests Test 12/15/17 16:55 White Blood Count 9.7 TH/MM3 Red Blood Count 5.82 MIL/MM3 Hemoglobin 15.9 GM/DL Hematocrit 47.4 % Mean Corpuscular Volume 81.4 FL Mean Corpuscular Hemoglobin 27.3 PG Mean Corpuscular Hemoglobin Concent 33.5 % Red Cell Distribution Width 17.3 % Platelet Count 244 TH/MM3 Mean Platelet Volume 8.0 FL Neutrophils (%) (Auto) 62.9 % Lymphocytes (%) (Auto) 27.2 % Monocytes (%) (Auto) 6.9 % Eosinophils (%) (Auto) 2.3 % Basophils (%) (Auto) 0.7 % Neutrophils # (Auto) 6.1 TH/MM3 Lymphocytes # (Auto) 2.6 TH/MM3 Monocytes # (Auto) 0.7 TH/MM3 Eosinophils # (Auto) 0.2 TH/MM3 Basophils # (Auto) 0.1 TH/MM3 CBC Comment DIFF FINAL Differential Comment Prothrombin Time 10.4 SEC Prothromb Time International Ratio 1.0 RATIO Activated Partial Thromboplast Time 26.9 SEC Blood Urea Nitrogen 14 MG/DL Creatinine 1.19 MG/DL Random Glucose 172 MG/DL Total Protein 8.2 GM/DL Albumin 4.4 GM/DL Calcium Level 9.6 MG/DL Magnesium Level 2.2 MG/DL Alkaline Phosphatase 76 U/L Aspartate Amino Transf (AST/SGOT) 22 U/L Alanine Aminotransferase (ALT/SGPT) 33 U/L Total Bilirubin 0.9 MG/DL Sodium Level 138 MEQ/L Potassium Level 3.5 MEQ/L Chloride Level 103 MEQ/L Carbon Dioxide Level 22.6 MEQ/L Anion Gap 12 MEQ/L Estimat Glomerular Filtration Rate 58 ML/MIN Total Creatine Kinase 101 U/L Creatine Kinase MB 2.8 NG/ML Troponin I 0.02 NG/ML B-Type Natriuretic Peptide 46 PG/ML Differential Diagnosis Differential diagnosis includes sick sinus syndrome, medication side effect, pulmonary embolism, hyperthyroidism, dysrhythmia, near syncope, electrolyte abnormality. Narrative Course IV was established, labs are drawn and sent, and the patient was placed on cardiac telemetry monitoring and continuous pulse oximetry monitoring. EKG was ordered and interpreted. The patient was administered aspirin. Chest x-ray was obtained. Orthostatic vital signs were obtained and the patient was administered 500 cc of normal saline. Chest x-ray is unremarkable. Labs are unremarkable. The patient's heart rate slowed down an EKG was performed once again which reveals a sinus arrhythmia with first-degree AV block versus sinus rhythm with second-degree AV block Mobitz type II. The patient recently underwent a workup on the blue team at the [place] [facility] and wore monitor for 2 weeks to evaluate if he needs a pacemaker. He has not followed up with a physician as of yet for the results. The patient has had some presyncopal symptoms with episodes of bradycardia and tachycardia, possibly could have underlying sick sinus syndrome. Therefore, the patient will be admitted, placed on cardiac telemetry monitoring, and may be benefited by cardiology consultation. The patient is comfortable with this plan of care. Physician Communication Physician Communication I discussed the patient with the mid-level provider for [facility] who agrees with admission to Dr. Terrell. Diagnosis Primary Impression: Dysrhythmia Qualified Codes: I49.9 - Cardiac arrhythmia, unspecified Additional Impressions: Heart block Near syncope Admitting Information Admitting Physician Requests: Admit Condition: Stable Jesse Avery MD Dec 15, 2017 17:00
[2017-12-15 17:09] VITALS: TEMP 98.7
[2017-12-15 17:11] LABS: AUTOMATED NEUTROPHIL # 6.1 TH/MM3 (1.8-7.7); BASOPHIL # 0.1 TH/MM3 (0-0.2); BASOPHIL % 0.7 % (0.0-2.0); EOSINOPHIL # 0.2 TH/MM3 (0-0.4); EOSINOPHIL % 2.3 % (0.0-4.0); HEMATOCRIT 47.4 % (39.0-51.0); HEMOGLOBIN 15.9 GM/DL (13.0-17.0); LYMPH % 27.2 % (9.0-44.0); LYMPHOCYTE # 2.6 TH/MM3 (1.0-4.8); MEAN CELL VOLUME 81.4 FL (80.0-100.0); MEAN CORPUSCULAR HEMOGLOBIN 27.3 PG (27.0-34.0); MEAN CORPUSCULAR HGB CONC 33.5 % (32.0-36.0); MONO % 6.9 % (0.0-8.0); MONOCYTE # 0.7 TH/MM3 (0-0.9); NEUT % 62.9 % (16.0-70.0); PLATELET COUNT 244 TH/MM3 (150-450); RED BLOOD COUNT 5.82 MIL/MM3 (4.50-5.90); RED CELL DISTRIBUTION WIDTH 17.3 % (11.6-17.2); WHITE BLOOD COUNT 9.7 TH/MM3 (4.0-11.0)
[2017-12-15 17:24] LABS: PROTHROMBIN TIME - PATIENT 10.4 SEC (9.8-11.6)
[2017-12-15 17:28] VITALS: BP_SYST 101; BP_SYST 115; BP_SYST 130; BP_SYST 135; BP_DIAS 60; BP_DIAS 71; BP_DIAS 74; BP_DIAS 82
[2017-12-15 17:29] LABS: ALBUMIN 4.4 GM/DL (3.4-5.0); ALT (GPT) 33 U/L (12-78); AST (GOT) 22 U/L (15-37); BICARBONATE 22.6 MEQ/L (21.0-32.0); BLOOD UREA NITROGEN 14 MG/DL (7-18); CALCIUM 9.6 MG/DL (8.5-10.1); CHLORIDE 103 MEQ/L (98-107); CREATININE 1.19 MG/DL (0.60-1.30); GLOMERULAR FILTRATION RATE 58 ML/MIN (>89); GLUCOSE,RANDOM 172 MG/DL (74-106); MAGNESIUM 2.2 MG/DL (1.5-2.5); SODIUM (NA) 138 MEQ/L (136-145)
[2017-12-15 17:34] LABS: ALKALINE PHOSPHATASE 76 U/L (45-117); TOTAL BILIRUBIN ADULT 0.9 MG/DL (0.2-1.0); TOTAL PROTEIN 8.2 GM/DL (6.4-8.2); TROPONIN I 0.02 NG/ML (0.02-0.05)
--- NOTE | 2017-12-15 17:40 | RADRPT ---
EXAM DATE: 12/15/2017 5:19 PM EDT AGE/SEX: 82 years / Male INDICATIONS: Chest pain. CLINICAL DATA: This is the patient's initial encounter. Patient reports that signs and symptoms have been present for 1 day and indicates a pain score of 6/10. MEDICAL/SURGICAL HISTORY: . Myocardial infarction. hypertension, skin cancer None. COMPARISON: No prior exams available for comparison. FINDINGS: PA and lateral views of the chest demonstrate the lungs to be symmetrically aerated without evidence of mass, infiltrate or effusion. The cardiomediastinal contours are unremarkable. Bilateral shoulder arthroplasties are noted. Osseous structures are otherwise intact. CONCLUSION: 1. No evidence of acute cardiopulmonary process. 2. Status post bilateral shoulder replacements. Electronically signed by: Esteban Rubio MD 12/15/2017 5:39 PM EDT
[2017-12-15] MEDS ORDERED: ACETAMINOPHEN 325 MG TAB PO PRN (18:45)
[2017-12-15] MEDS ORDERED: MAGNESIUM HYDROXIDE SUSP 30 ML CUP PO PRN (18:45)
[2017-12-15] MEDS ORDERED: LACTULOSE SYRUP 20 GM/30 ML CUP PO PRN (18:45)
[2017-12-15] MEDS ORDERED: SENNOSIDES 8.6 MG TAB PO PRN (18:45)
[2017-12-15] MEDS ORDERED: BISACODYL 10 MG SUPP RECTAL PRN (18:45)
[2017-12-15] MEDS ORDERED: NALOXONE HCL 0.4 MG/ML AMP IV PUSH PRN (18:45)
[2017-12-15] MEDS ORDERED: ONDANSETRON ODT 4 MG TAB PO PRN (18:45)
[2017-12-15 19:00] VITALS: BP 143/77; PULSE 63; RESP 16; O2SAT 97
[2017-12-15] MEDS ORDERED: ENOXAPARIN SODIUM 30 MG/0.3 ML SYRINGE SQ SCH (20:00)
[2017-12-15] MEDS: PANTOPRAZOLE SOD 40 MG DELAYED RELEASE TAB PO SCH (20:07)
--- NOTE | 2017-12-15 20:12 | HHI.HP ---
[facility] Service [facility] Primary Care Physician [facility] Admission Diagnosis Dysrhythmia, sick sinus syndrome versus second-degree AV block, near Diagnoses: Travel History International Travel<30 Days: No Contact w/Intl Traveler <30 Da: No Traveled to Known Affected Are: No History of Present Illness 82-year-old male with a past medical history significant for sick sinus syndrome , PTSD and GERD presents to the emergency department for evaluation of low heart rate. The patient reports he has a history of bradycardia and checks his pulse daily per [place] instructions. Patient reports that when he checked his pulse earlier today it was in the 40s and did not elevate over 51. He reports dizziness, worse when he got out of the car after driving himself to the hospital. He denies any syncopal episodes. No shortness of breath. No palpitations. No chest pain. No abdominal pain. No nausea/vomiting/diarrhea. No fever/chills. No lateralizing signs/symptoms. Review of Systems Except as stated in HPI: all other systems reviewed are Neg Past Family Social History Past Medical History sick sinus syndrome, PTSD and GERD Past Surgical History Bilateral rotator cuff repair Bilateral knee replacement Appendectomy Dupuytren's contracture surgery Tonsillectomy Reported Medications Reported Meds & Active Scripts Active Reported Curcumin (Turmeric (Curcuma Longa) (Bulk) 95 % Pow Ferrous Sulfate 325 Mg (65 Mg Iron) Tablet 325 Mg PO DAILY Aspirin Low Dose (Aspirin) 81 Mg Chew 81 Mg CHEW DAILY Multiple Vitamin 1 Tab 1 Tab .ROUTE DAILY Protonix (Pantoprazole Sodium) 40 Mg Tab 40 PO DAILY Zoloft (Sertraline HCl) 100 Mg Tab 200 Mg PO DAILY Allergies: Coded Allergies: penicillin G (Unverified Allergy, Severe, Rash, 12/15/17) atorvastatin (Verified Allergy, Unknown, 12/15/17) levofloxacin (Verified Allergy, Unknown, 12/15/17) simvastatin (Verified Allergy, Unknown, 12/15/17) Family History Father with diabetes mellitus Social History Occasional alcohol. Denies tobacco and illicit drugs. Physical Exam Vital Signs Vital Signs Date Time Temp Pulse Resp B/P (MAP) Pulse Ox O2 Delivery O2 Flow Rate FiO2 12/15/17 19:00 63 16 143/77 (99) 97 Room Air 12/15/17 17:28 115/82 (93) 130/74 (92) 18 17:28 70 135/71 (92) 126 101/60 (74) 12/15/17 17:09 98.7 12/15/17 16:45 112 16 136/103 (114) 98 Physical Exam GENERAL: male lying in bed SKIN: No rashes, ecchymoses or lesions. Cool and dry. HEAD: Atraumatic. Normocephalic. No temporal or scalp tenderness. EYES: Pupils equal round and reactive. Extraocular motions intact. No scleral icterus. No injection or drainage. ENT: Nose without bleeding, purulent drainage or septal hematoma. Throat without erythema, tonsillar hypertrophy or exudate. Uvula midline. Airway patent. NECK: Trachea midline. No JVD or lymphadenopathy. Supple, nontender, no meningeal signs. CARDIOVASCULAR: Cardiac. Regular rhythm without murmurs, gallops, or rubs. RESPIRATORY: Clear to auscultation. Breath sounds equal bilaterally. No wheezes , rales, or rhonchi. GASTROINTESTINAL: Abdomen soft, non-tender, nondistended. No hepato-splenomegaly , or palpable masses. No guarding. MUSCULOSKELETAL: Extremities without clubbing, cyanosis, or edema. No joint tenderness, effusion, or edema noted. No calf tenderness. NEUROLOGICAL: Awake and alert. Cranial nerves II through XII intact. Motor and sensory grossly within normal limits. Normal speech. Laboratory Laboratory Tests Test 12/15/17 16:55 White Blood Count 9.7 Red Blood Count 5.82 Hemoglobin 15.9 Hematocrit 47.4 Mean Corpuscular Volume 81.4 Mean Corpuscular Hemoglobin 27.3 Mean Corpuscular Hemoglobin Concent 33.5 Red Cell Distribution Width 17.3 Platelet Count 244 Mean Platelet Volume 8.0 Neutrophils (%) (Auto) 62.9 Lymphocytes (%) (Auto) 27.2 Monocytes (%) (Auto) 6.9 Eosinophils (%) (Auto) 2.3 Basophils (%) (Auto) 0.7 Neutrophils # (Auto) 6.1 Lymphocytes # (Auto) 2.6 Monocytes # (Auto) 0.7 Eosinophils # (Auto) 0.2 Basophils # (Auto) 0.1 CBC Comment DIFF FINAL Differential Comment Prothrombin Time 10.4 Prothromb Time International Ratio 1.0 Activated Partial Thromboplast Time 26.9 Blood Urea Nitrogen 14 Creatinine 1.19 Random Glucose 172 Total Protein 8.2 Albumin 4.4 Calcium Level 9.6 Magnesium Level 2.2 Alkaline Phosphatase 76 Aspartate Amino Transf (AST/SGOT) 22 Alanine Aminotransferase (ALT/SGPT) 33 Total Bilirubin 0.9 Sodium Level 138 Potassium Level 3.5 Chloride Level 103 Carbon Dioxide Level 22.6 Anion Gap 12 Estimat Glomerular Filtration Rate 58 Total Creatine Kinase 101 Creatine Kinase MB 2.8 Troponin I 0.02 B-Type Natriuretic Peptide 46 Result Diagram: 12/15/17165412/15/171654 Caprini VTE Risk Assessment Caprini VTE Risk Assessment: Mod/High Risk (score >= 2) Caprini Risk Assessment Model Point Value = 1 Point Value = 2 Point Value = 3 Point Value = 5 Age 41-60 Minor surgery BMI > 25 kg/m2 Swollen legs Varicose veins or History of unexplained or recurrent spontaneous Oral contraceptives or hormone replacement Sepsis (< 1 month) Serious lung disease, including pneumonia (< 1 month) Abnormal pulmonary function Acute myocardial infarction Congestive heart failure (< 1 month) History of inflammatory bowel disease Medical patient at bed rest Age 61-74 Arthroscopic surgery Major open surgery (> 45 min) Laparoscopic surgery (> 45 min) Malignancy Confined to bed (> 72 hours) Immobilizing plaster cast Central venous access Age >= 75 History of VTE Family history of VTE Factor V Leiden Prothrombin [id number] Lupus anticoagulant Anticardiolipin antibodies Elevated serum homocysteine Heparin-induced thrombocytopenia Other congenital or acquired thrombophilia Stroke (< 1 month) Elective arthroplasty Hip, pelvis, or leg fracture Acute spinal cord injury (< 1 month) Prophylaxis Regimen Total Risk Factor Score Risk Level Prophylaxis Regimen 0-1 Low Early ambulation 2 Moderate Order ONE of the following: *Sequential Compression Device (SCD) *Heparin 5000 units SQ BID 3-4 Higher Order ONE of the following medications: *Heparin 5000 units SQ TID *Enoxaparin/Lovenox 40 mg SQ daily (WT < 150 kg, CrCl > 30 mL/min) *Enoxaparin/Lovenox 30 mg SQ daily (WT < 150 kg, CrCl > 10-29 mL/min) *Enoxaparin/Lovenox 30 mg SQ BID (WT < 150 kg, CrCl > 30 mL/min) AND/OR *Sequential Compression Device (SCD) 5 or more Highest Order ONE of the following medications: *Heparin 5000 units SQ TID (Preferred with Epidurals) *Enoxaparin/Lovenox 40 mg SQ daily (WT < 150 kg, CrCl > 30 mL/min) *Enoxaparin/Lovenox 30 mg SQ daily (WT < 150 kg, CrCl > 10-29 mL/min) *Enoxaparin/Lovenox 30 mg SQ BID (WT < 150 kg, CrCl > 30 mL/min) AND *Sequential Compression Device (SCD) Assessment and Plan Assessment and Plan Assessment/plan: 1. Sick sinus syndrome Patient reports at home heart rate of 44, 110 on EKG EKG significant for first-degree AV block, no ST segment elevations or depressions, personally reviewed Telemetry Cardiology consulted, appreciate recommendations 2. PTSD Continue home Zoloft 3. GERD Continue home Protonix FEN N.p.o. Electrolytes: Monitor and replete as needed Holding pharmacologic anticoagulation for possible procedure Physician Certification 2 Midnight Certification Type: Admission for Inpatient Services Order for Inpatient Services The services are ordered in accordance with Medicare regulations or non- Medicare payer requirements, as applicable. In the case of services not specified as inpatient-only, they are appropriately provided as inpatient services in accordance with the 2-midnight benchmark. Estimated LOS (days): 2 2 days is the estimated time the patient will need to remain in the hospital, assuming treatment plan goals are met and no additional complications. Post-Hospital Plan: Not yet determined Lilliana Howe MD Dec 15, 2017 20:12
--- NOTE | 2017-12-15 20:27 | EKG ---
Date Performed: 12/15/2017 Time Performed: 16:45:17 PTAGE: 82 years EKG: SInus tachycardia INCOMPLETE RIGHT BUNDLE BRANCH BLOCK VOLTAGE CRITERIA FOR LVH INFERIOR MY OCARDIAL INFARCTION ABNORMAL ECG NO PREVIOUS TRACING DOCTOR: Anthony Cavazos Interpretating Date/Time 12/15/2017 20:27:14
[2017-12-15] MEDS: DOCUSATE SODIUM 50 MG/SENNA 8.6 MG TAB PO SCH (21:00)
[2017-12-15 21:50] VITALS: BP 169/84; PULSE 69; RESP 22; TEMP 97.7; O2SAT 98
[2017-12-16] VITALS (9 sets, daily range): BP systolic 114–151; BP diastolic 59–73; PULSE 53–70; RESP 16–22; TEMP 97.2–98.2; O2SAT 93–97
--- NOTE | 2017-12-16 08:15 | EKG ---
Date Performed: 12/15/2017 Time Performed: 18:03:53 PTAGE: 82 years EKG: Sinus rhythm WITH PROLONGED FIRST DEGREE ATRIOVENTRICULAR BLOCK SINOATRIAL EXIT BLOCK NONSPECIFIC T-WAVE ABNORMAL ITY ABNORMAL ECG PREVIOUS TRACING : 12/15/2017 16.45 DOCTOR: Anthony Cavazos Interpretating Date/Time 12/16/2017 08:14:53
--- NOTE | 2017-12-16 08:16 | PD.CONS ---
HPI Service cardiology Consult Requested By Reason for Consult arrhythmia Primary Care Physician [facility] History of Present Illness 82 yo WM with CAD, PCI YAW RCA (2011), GERD and PTSD who presents after checking his pulse rate at home and found to be in the 40's. He was asymptomatic but concerned and came to get evaluated. He was recently admitted last month for confusion and found to have bradycardia at that time. He was taking atenolol 50mg at that time which was reduced to 25mg daily. Patient states he has not been taking it lately but also admits to poor memory. He reports following with [facility] and wore a holter monitor last month, but has not received results yet. EKG in ED showed 1st degree AVB vs. sinus exit block. Review of telemetry overnight continues to show prolonged pauses (2-3 seconds) and periods of 2nd degree AVN block and lowest HR appears to be 38bpm overnight. Troponin normal. (Aurora Mendoza) Review of Systems Consitutional: DENIES: Fatigue, Fever, Chills, Weight gain, Weight loss Respiratory: DENIES: Cough, Snoring, Shortness of breath, Wheezing, Sputum production Cardiovascular: DENIES: Chest pain, Palpitations, Syncope, Tachycardia Gastrointestinal: DENIES: Nausea, Vomiting, Change in bowel habits, Reflux, Bloody stools, Melena (Aurora Mendoza) Past Family Social History Allergies: Coded Allergies: penicillin G (Unverified Allergy, Severe, Rash, 12/15/17) atorvastatin (Verified Allergy, Unknown, 12/15/17) levofloxacin (Verified Allergy, Unknown, 12/15/17) simvastatin (Verified Allergy, Unknown, 12/15/17) Past Medical History sick sinus syndrome, PTSD and GERD Past Surgical History Bilateral rotator cuff repair Bilateral knee replacement Appendectomy Dupuytren's contracture surgery Tonsillectomy Reported Medications Reported Meds & Active Scripts Active Reported Curcumin (Turmeric (Curcuma Longa) (Bulk) 95 % Pow Ferrous Sulfate 325 Mg (65 Mg Iron) Tablet 325 Mg PO DAILY Aspirin Low Dose (Aspirin) 81 Mg Chew 81 Mg CHEW DAILY Multiple Vitamin 1 Tab 1 Tab .ROUTE DAILY Protonix (Pantoprazole Sodium) 40 Mg Tab 40 PO DAILY Zoloft (Sertraline HCl) 100 Mg Tab 200 Mg PO DAILY Active Ordered Medications Current Medications Medications (Trade) Dose Ordered Sig/Francisca Route Start Time Stop Time Status Last Admin (NS Flush) 2 ml UNSCH PRN IVF 12/15/17 17:00 (Aspirin Chew) 81 mg DAILY CHEW 12/16/17 09:00 (Ferrous Sulfate) 325 mg DAILY PO 12/16/17 09:00 (Zoloft) 200 mg DAILY PO 12/16/17 09:00 (Theragran) 1 tab DAILY PO 12/16/17 09:00 (Protonix) 40 mg DAILY PO 12/15/17 18:45 12/15/17 20:07 (Tylenol) 650 mg Q4H PRN PO 12/15/17 18:45 (Narcan Inj) 0.4 mg UNSCH PRN IV PUSH 12/15/17 18:45 (Melina-Colace) 1 tab BID PO 12/15/17 21:00 (Milk Of Magnesia Liq) 30 ml Q12H PRN PO 12/15/17 18:45 (Senokot) 17.2 mg Q12H PRN PO 12/15/17 18:45 (Dulcolax Supp) 10 mg DAILY PRN RECTAL 12/15/17 18:45 (Lactulose Liq) 30 ml DAILY PRN PO 12/15/17 18:45 (Zofran Odt) 4 mg Q6H PRN PO 12/15/17 18:45 Family History Father with diabetes mellitus Social History Occasional alcohol. Denies tobacco and illicit drugs. (Aurora Mendoza) Physical Exam Vital Signs Vital Signs Date Time Temp Pulse Resp B/P (MAP) Pulse Ox O2 Delivery O2 Flow Rate FiO2 12/16/17 04:00 98.2 60 18 117/66 (83) 95 12/16/17 00:22 97 12/16/17 00:00 97.9 53 20 125/59 (81) 95 12/15/17 21:50 97.7 69 22 169/84 (112) 98 12/15/17 20:35 12/15/17 19:00 63 16 143/77 (99) 97 Room Air 12/15/17 17:28 115/82 (93) 130/74 (92) 12/15/17 17:28 70 135/71 (92) 126 101/60 (74) 12/15/17 17:09 98.7 12/15/17 16:45 112 16 136/103 114 98 Physical Exam GENERAL: SKIN: Warm and dry. HEAD: Atraumatic. Normocephalic. EYES: Pupils equal and round. No scleral icterus. No injection or drainage. ENT: No nasal bleeding or discharge. NECK: Trachea midline. No JVD. CARDIOVASCULAR: Regular rate and rhythm. no murmurs RESPIRATORY: No accessory muscle use. Clear to auscultation. Breath sounds equal bilaterally. GASTROINTESTINAL: Abdomen soft, non-tender, nondistended. Hepatic and splenic margins not palpable. MUSCULOSKELETAL: Extremities without clubbing, cyanosis, or edema. No obvious deformities. NEUROLOGICAL: Awake and alert. No obvious cranial nerve deficits. Normal speech. PSYCHIATRIC: Appropriate mood and affect; insight and judgment normal. Laboratory Laboratory Tests Test 12/15/17 16:55 White Blood Count 9.7 Red Blood Count 5.82 Hemoglobin 15.9 Hematocrit 47.4 Mean Corpuscular Volume 81.4 Mean Corpuscular Hemoglobin 27.3 Mean Corpuscular Hemoglobin Concent 33.5 Red Cell Distribution Width 17.3 Platelet Count 244 Mean Platelet Volume 8.0 Neutrophils (%) (Auto) 62.9 Lymphocytes (%) (Auto) 27.2 Monocytes (%) (Auto) 6.9 Eosinophils (%) (Auto) 2.3 Basophils (%) (Auto) 0.7 Neutrophils # (Auto) 6.1 Lymphocytes # (Auto) 2.6 Monocytes # (Auto) 0.7 Eosinophils # (Auto) 0.2 Basophils # (Auto) 0.1 CBC Comment DIFF FINAL Differential Comment Prothrombin Time 10.4 Prothromb Time International Ratio 1.0 Activated Partial Thromboplast Time 26.9 Blood Urea Nitrogen 14 Creatinine 1.19 Random Glucose 172 Total Protein 8.2 Albumin 4.4 Calcium Level 9.6 Magnesium Level 2.2 Alkaline Phosphatase 76 Aspartate Amino Transf (AST/SGOT) 22 Alanine Aminotransferase (ALT/SGPT) 33 Total Bilirubin 0.9 Sodium Level 138 Potassium Level 3.5 Chloride Level 103 Carbon Dioxide Level 22.6 Anion Gap 12 Estimat Glomerular Filtration Rate 58 Total Creatine Kinase 101 Creatine Kinase MB 2.8 Troponin I 0.02 B-Type Natriuretic Peptide 46 (Aurora Mendoza) Result Diagram: 12/15/17 0735 12/15/17 1655 Assessment and Plan Problem List: (1) Bradycardia ICD Codes: R00.1 - Bradycardia, unspecified Status: Acute Assessment and Plan 82 yo WM with CAD, PCI YAW RCA (2011), GERD and PTSD who presents after checking his pulse rate at home and found to be in the 40's. He was asymptomatic but concerned and came to get evaluated. He was recently admitted last month for confusion and found to have bradycardia at that time. He was taking atenolol 50mg at that time which was reduced to 25mg daily. Patient states he has not been taking it lately but also admits to poor memory. He reports following [facility] and wore a holter monitor last month, but has not received results yet. EKG in ED showed 1st degree AVB vs. sinus exit block. Review of telemetry overnight continues to show prolonged pauses (2-3 seconds) and periods of 2nd degree AVN block and lowest HR appears to be 38bpm overnight. Troponin normal bradycardia- sinus exit block with periods of 2nd degree AVB. HR as low as 38 overnight and history of symptomatic bradycardia. consider PPM (Aurora Mendoza) Assessment and Plan near syncope symptomatic bradycardia prolonged first degree AV block rare second degree AV block occasional sinus exit block no AV dandre blocking agents electrolytes ok check TSH await 2d echo probable PPM (Anthony Cavazos MD) Aurora Mendoza Dec 16, 2017 08:16 Anthony Cavazos MD Dec 16, 2017 08:23
[2017-12-16] MEDS: FERROUS SULFATE 325 MG (65 MG ELEMENTAL IRON) TAB PO SCH (08:45)
[2017-12-16] MEDS: PANTOPRAZOLE SOD 40 MG DELAYED RELEASE TAB PO SCH (08:45)
[2017-12-16] MEDS: ASPIRIN 81 MG CHEW TAB CHEW SCH (08:46)
[2017-12-16] MEDS: SERTRALINE HCL 100 MG TAB PO SCH (08:46)
[2017-12-16] MEDS: MULTIVITAMIN TAB PO SCH (08:46)
[2017-12-16] MEDS: DOCUSATE SODIUM 50 MG/SENNA 8.6 MG TAB PO SCH ×2 (08:46→21:00)
--- NOTE | 2017-12-16 09:18 | HHI.PR ---
Subjective Remarks Follow-up symptomatic bradycardia. Doing ok ambulating w/o sxs wants to go home Objective Vitals Vital Signs Date Time Temp Pulse Resp B/P (MAP) Pulse Ox O2 Delivery O2 Flow Rate FiO2 12/16/17 08:00 97.7 60 16 119/59 (79) 95 12/16/17 04:00 98.2 60 18 117/66 (83) 95 12/16/17 00:22 97 12/16/17 00:00 97.9 53 20 125/59 (81) 95 12/15/17 21:50 97.7 69 22 169/84 (112) 98 12/15/17 20:35 12/15/17 19:00 63 16 143/77 (99) 97 Room Air 12/15/17 17:28 115/82 (93) 130/74 (92) 12/15/17 17:28 70 135/71 (92) 126 101/60 (74) 12/15/17 17:09 98.7 12/15/17 16:45 112 16 136/103 (114) 98 I/O 12/15/17 12/15/17 12/15/17 12/16/17 12/16/17 12/16/17 07:00 15:00 23:00 07:00 15:00 23:00 Intake Total 500 ml 250 ml Balance 500 ml 250 ml Intake Oral 250 ml IV Total 500 ml Result Diagram: 12/15/175 12/15/171654 Imaging Last Impressions Chest X-Ray 12/15/171653 Signed Impressions: CONCLUSION: 1. No evidence of acute cardiopulmonary process. 2. Status post bilateral shoulder replacements. Objective Remarks GENERAL: male lying in bed SKIN: No rashes, ecchymoses or lesions. Cool and dry. CARDIOVASCULAR: Cardiac. Regular rhythm without murmurs, gallops, or rubs. RESPIRATORY: Clear to auscultation. Breath sounds equal bilaterally. No wheezes , rales, or rhonchi. GASTROINTESTINAL: Abdomen soft, non-tender, nondistended. No guarding. MUSCULOSKELETAL: Extremities without clubbing, cyanosis, or edema. No joint tenderness, effusion, or edema noted. No calf tenderness. NEUROLOGICAL: Awake and alert. Cranial nerves II through XII intact. Motor and sensory grossly within normal limits. Normal speech. Procedures none A/P Problem List: (1) Bradycardia ICD Code: R00.1 - Bradycardia, unspecified Status: Acute (2) Near syncope ICD Code: R55 - Syncope and collapse Status: Acute Assessment and Plan 1. Symptomatic bradycardia with history of sick sinus syndrome Patient reports at home heart rate of 44, 110 on EKG EKG significant for first-degree AV block, no ST segment elevations or depressions, personally reviewed Telemetry Cardiology consulted, appreciate recommendations may need pacemaker. Follow-up TSH and echocardiogram 2. PTSD Continue home Zoloft 3. GERD Continue home Protonix FEN heart healty Electrolytes: Monitor and replete as needed Holding pharmacologic anticoagulation for possible procedure [address] Dr Gonzáles pt declined PPM. TSH ok ECHO pending Discharge Planning Discharge patient to home Condition on discharge: Improved Regular Diet as tolerated Ad Ksenia activity no driving Rx written: none Follow-up with primary care physician and cardiology Kp Norieag MD Dec 16, 2017 09:18
[2017-12-16 10:07] LABS: BICARBONATE 26.4 MEQ/L (21.0-32.0); CALCIUM 9.5 MG/DL (8.5-10.1); CREATININE 1.04 MG/DL (0.60-1.30)
--- NOTE | 2017-12-16 13:56 | HHI.DCPOC ---
Discharge Care Plan Diagnosis: (1) Near syncope (2) Bradycardia Your Health Problems Are: Difficulty with ADL Exercise Tolerance Goals to Promote Your Health * To prevent worsening of your condition and complications * To maintain your health at the optimal level Directions to Meet Your Goals Take your medications as prescribed Follow your dietary instruction Follow activity as directed Keep your appointments as scheduled Take your immunizations and boosters as scheduled If your symptoms worsen call your PCP, if no PCP go to Urgent Care Center or Emergency Room Smoking is Dangerous to Your Health. Avoid second hand smoke Call the 24-hour hour crisis hotline for domestic abuse at Kp Noriega MD Dec 16, 2017 13:56
[2017-12-17] VITALS: BP 122/60; PULSE 68; RESP 20; TEMP 98.1; O2SAT 95
[2017-12-17 04:00] VITALS: BP 109/55; PULSE 65; RESP 20; TEMP 97.7; O2SAT 96
[2017-12-17 08:00] VITALS: BP 124/64; PULSE 59; RESP 16; TEMP 97.9; O2SAT 95
--- NOTE | 2017-12-17 08:11 | PD.CARD.PN ---
Subjective Subjective Remarks Patient is doing well overnight. No significant bradycardia noted on telemetry overnight. Patient denies any chest pain, shortness breath, lightheadedness, dizziness, palpitations. Patient was seen by Dr. Gonzáles yesterday and offered pacemaker placement for symptomatic bradycardia, the patient reported he is not very fatigued and was not interested in pacemaker placement at this time and [facility] and will [facility] to. (Laron Flor) Objective Medications Current Medications Medications (Trade) Dose Ordered Sig/Francisca Route Start Time Stop Time Status Last Admin (NS Flush) 2 ml UNSCH PRN IVF 12/15/17 17:00 (Aspirin Chew) 81 mg DAILY CHEW 12/16/17 09:00 12/16/17 08:46 (Ferrous Sulfate) 325 mg DAILY PO 12/16/17 09:00 12/16/17 08:45 (Zoloft) 200 mg DAILY PO 12/16/17 09:00 12/16/17 08:46 (Theragran) 1 tab DAILY PO 12/16/17 09:00 12/16/17 08:46 (Protonix) 40 mg DAILY PO 12/15/17 18:45 12/16/17 08:45 (Tylenol) 650 mg Q4H PRN PO 12/15/17 18:45 (Narcan Inj) 0.4 mg UNSCH PRN IV PUSH 12/15/17 18:45 (Melina-Colace) 1 tab BID PO 12/15/17 21:00 12/16/17 08:46 (Milk Of Magnesia Liq) 30 ml Q12H PRN PO 12/15/17 18:45 (Senokot) 17.2 mg Q12H PRN PO 12/15/17 18:45 (Dulcolax Supp) 10 mg DAILY PRN RECTAL 12/15/17 18:45 (Lactulose Liq) 30 ml DAILY PRN PO 12/15/17 18:45 (Zofran Odt) 4 mg Q6H PRN PO 12/15/17 18:45 Vital Signs / I&O Vital Signs Date Time Temp Pulse Resp B/P (MAP) Pulse Ox O2 Delivery O2 Flow Rate FiO2 12/17/17 04:00 97.7 65 20 109/55 (73) 96 12/17/17 00:00 98.1 68 20 122/60 (80) 95 12/16/17 20:00 98.0 68 22 122/61 (81) 93 12/16/17 17:44 97 21 12/16/17 16:00 97.2 70 17 151/73 (99) 97 12/16/17 12:00 97.9 66 16 114/67 (83) 97 I/O 12/16/17 12/16/17 12/16/17 12/17/17 12/17/17 12/17/17 07:00 15:00 23:00 07:00 15:00 23:00 Intake Total 250 ml 500 ml 120 ml Balance 250 ml 500 ml 120 ml Intake Oral 250 ml 500 ml 120 ml # Voids 3 4 # Bowel Movements 0 4 Physical Exam GENERAL: Well-developed well-nourished. In no acute distress. NECK: No carotid bruits. No JVD. CARDIOVASCULAR: Regular rate and rhythm. No murmur appreciated. RESPIRATORY: No accessory muscle use. Clear to auscultation. Breath sounds equal bilaterally. MUSCULOSKELETAL: No clubbing or cyanosis. No edema. NEUROLOGICAL: Awake and alert. Normal speech. Laboratory Laboratory Tests Test 12/16/17 08:52 Blood Urea Nitrogen 14 MG/DL Creatinine 1.04 MG/DL Random Glucose 117 MG/DL Calcium Level 9.5 MG/DL Sodium Level 141 MEQ/L Potassium Level 4.0 MEQ/L Chloride Level 106 MEQ/L Carbon Dioxide Level 26.4 MEQ/L Anion Gap 9 MEQ/L Estimat Glomerular Filtration Rate 68 ML/MIN Thyroid Stimulating Hormone 3rd Gen 1.530 uIU/ML Imaging Last Impressions Chest X-Ray 12/15/17 1654 Signed Impressions: CONCLUSION: 1. No evidence of acute cardiopulmonary process. 2. Status post bilateral shoulder replacements. (Laron Flor) Assessment and Plan Problem List: (1) Bradycardia ICD Codes: R00.1 - Bradycardia, unspecified Status: Acute Assessment and Plan 82 yo WM with CAD, PCI YAW RCA (2011), GERD and PTSD who presents after checking his pulse rate at home and found to be in the 40's. He was asymptomatic but concerned and came to get evaluated. Bradycardia: prolonged first degree AV block, rare second degree AV block, occasional sinus exit block Patient declines pacemaker no AV dandre blocking agents 2D echo pending Discharge planning. After discharge can continue to follow-up with cardiology at the [facility]. (Laron Flor) Assessment and Plan DC home FU [facility] he can get echo as outpatient at [facility]. no need to keep him here for echo. (Anthony Cavazos MD) Laron Flor Dec 17, 2017 08:11 Anthony Cavazos MD Dec 17, 2017 10:16
[2017-12-17] MEDS: DOCUSATE SODIUM 50 MG/SENNA 8.6 MG TAB PO SCH (09:00)
[2017-12-17] MEDS: ASPIRIN 81 MG CHEW TAB CHEW SCH (09:06)
[2017-12-17] MEDS: PANTOPRAZOLE SOD 40 MG DELAYED RELEASE TAB PO SCH (09:07)
[2017-12-17] MEDS: FERROUS SULFATE 325 MG (65 MG ELEMENTAL IRON) TAB PO SCH (09:07)
[2017-12-17] MEDS: MULTIVITAMIN TAB PO SCH (09:07)
[2017-12-17] MEDS: SERTRALINE HCL 100 MG TAB PO SCH (09:08)
--- NOTE | 2017-12-17 09:16 | HHI.PR ---
Subjective Remarks Follow-up symptomatic bradycardia. Discharge held yesterday pending echocardiogram. Still no complaints Objective Vitals Vital Signs Date Time Temp Pulse Resp B/P (MAP) Pulse Ox O2 Delivery O2 Flow Rate FiO2 12/17/17 04:00 97.7 65 20 109/55 (73) 96 12/17/17 00:00 98.1 68 20 122/60 (80) 95 12/16/17 20:00 98.0 68 22 122/61 (81) 93 12/16/17 17:44 97 21 12/16/17 16:00 97.2 70 17 151/73 (99) 97 12/16/17 12:00 97.9 66 16 114/67 (83) 97 I/O 12/16/17 12/16/17 12/16/17 12/17/17 12/17/17 12/17/17 07:00 15:00 23:00 07:00 15:00 23:00 Intake Total 250 ml 500 ml 120 ml Balance 250 ml 500 ml 120 ml Intake Oral 250 ml 500 ml 120 ml # Voids 3 4 # Bowel Movements 0 4 Result Diagram: 12/15/175 12/16/17 0852 Imaging Last Impressions Chest X-Ray 12/15/171653 Signed Impressions: CONCLUSION: 1. No evidence of acute cardiopulmonary process. 2. Status post bilateral shoulder replacements. Objective Remarks GENERAL: male lying in bed SKIN: No rashes, ecchymoses or lesions. Cool and dry. CARDIOVASCULAR: Cardiac. Regular rhythm without murmurs, gallops, or rubs. RESPIRATORY: Clear to auscultation. Breath sounds equal bilaterally. No wheezes , rales, or rhonchi. GASTROINTESTINAL: Abdomen soft, non-tender, nondistended. No guarding. MUSCULOSKELETAL: Extremities without clubbing, cyanosis, or edema. No joint tenderness, effusion, or edema noted. No calf tenderness. NEUROLOGICAL: Awake and alert. Cranial nerves II through XII intact. Motor and sensory grossly within normal limits. Normal speech. Procedures none A/P Problem List: (1) Bradycardia ICD Code: R00.1 - Bradycardia, unspecified Status: Acute (2) Near syncope ICD Code: R55 - Syncope and collapse Status: Acute Assessment and Plan 1. Symptomatic bradycardia with history of sick sinus syndrome Patient reports at home heart rate of 44, 110 on EKG EKG significant for first-degree AV block, no ST segment elevations or depressions, personally reviewed Telemetry with NSR Cardiology consulted, appreciate recommendations may need pacemaker pt declined. Unremarkable TSH f/u echocardiogram 2. PTSD Continue home Zoloft 3. GERD Continue home Protonix FEN heart healty Electrolytes: Monitor and replete as needed DVT proph with SCD and OOB Discharge Planning Discharge patient to home Condition on discharge: Improved Regular Diet as tolerated Ad Ksenia activity no driving Rx written: none Follow-up with primary care physician and cardiology Kp Noriega MD Dec 17, 2017 09:16
[2017-12-17 12:00] VITALS: BP 137/70; PULSE 81; RESP 20; TEMP 97.9; O2SAT 94
--- NOTE | 2017-12-17 14:49 | ECHRPT ---
Indication: Coronary Atherosclerosis CONCLUSIONS Normal left ventricular size. Wall thickness is normal. Doppler parameters are consistent with a pseudonormal left ventricular filling pattern with concomin ant abnormal relaxation and increased filling pressure (grade 2 diastolic dysfunction). The right ventricular size is normal. The left ventricular systolic function is normal with an estimated ejection fraction in the range of 60-65%. Trace mitral valve regurgitation. There is trace tricuspid valve regurgitation. The estimated pulmonary arterial pressure is 31 mmHg. BP: / HR: Rhythm: MEASUREMENTS (Male / Female) Normal Values Technical Quality: 2D ECHO LV Diastolic Diameter PLAX 5.4 cm 4.2 - 5.9 / 3.9 - 5.3 cm LV Systolic Diameter PLAX 3.8 cm IVS Diastolic Thickness 1.2 cm 0.6 - 1.0 / 0.6 - 0.9 cm LVPW Diastolic Thickness 0.9 cm 0.6 - 1.0 / 0.6 - 0.9 cm LV Relative Wall Thickness 0.4 RV Internal Dim ED PLAX 2.9 cm M-MODE Aortic Root Diameter MM 3.1 cm LA Systolic Diameter MM 4.1 cm LA Ao Ratio MM 1.3 AV Cusp Separation MM 1.8 cm DOPPLER Mitral E Point Velocity 84.5 cm/s Mitral A Point Velocity 81.4 cm/s Mitral E to A Ratio 1.0 LV E' Lateral Velocity 7.1 cm/s Mitral E to LV E' Lateral Ratio 11.9 TR Peak Velocity 229.0 cm/s TR Peak Gradient 21.0 mmHg Right Atrial Pressure 10.0 mmHg Pulmonary Artery Systolic Pressu 31.0 mmHg Right Ventricular Systolic Press 31.0 mmHg FINDINGS LEFT VENTRICLE The left ventricular systolic function is normal with an estimated ejection fraction in the range of 60-65%. Normal left ventricular size. Wall thickness is normal. Doppler parameters are consistent with a pseudonormal left ventricular filling pattern with concomin ant abnormal relaxation and increased filling pressure (grade 2 diastolic dysfunction). RIGHT VENTRICLE The right ventricular size is normal. LEFT ATRIUM The left atrial size is normal. RIGHT ATRIUM The right atrial size is normal. ATRIAL SEPTUM Normal atrial septal thickness without atrial level shunting by limited color doppler interrogation. AORTA The aortic root and proximal ascending aorta are not well visualized. MITRAL VALVE Trace mitral valve regurgitation. AORTIC VALVE Trileaflet aortic valve. No aortic valve stenosis or regurgitation. TRICUSPID VALVE There is trace tricuspid valve regurgitation. The estimated pulmonary arterial pressure is 31 mmHg. PULMONARY VALVE No pulmonary valve regurgitation or stenosis. VESSELS The inferior vena cava was not well visualized. PERICARDIUM There is no pericardial effusion. Anthony Cavazos MD, FACC (Electronically Signed) Final Date:17 December 2017 14:48
== END 2017-12-17 15:55 | disposition home or self-care (01) | DRG 310 ==
LOC: NEPC 16:39 → NEDA 18:39 → N07B 20:35
PROVIDERS: ADMIT Internal Medicine; ATTEND Internal Medicine
DX: I44.1 Atrioventricular block, second degree (principal); F43.10 Post-traumatic stress disorder, unspecified; I49.5 Sick sinus syndrome; K21.9 Gastro-esophageal reflux disease without esophagitis; I44.0 Atrioventricular block, first degree; I25.10 Atherosclerotic heart disease of native coronary artery without angina pectoris; Z96.653 Presence of artificial knee joint, bilateral; Z88.1 Allergy status to other antibiotic agents; Z88.0 Allergy status to penicillin; Z88.8 Allergy status to other drugs, medicaments and biological substances; Z79.82 Long term (current) use of aspirin; Z79.899 Other long term (current) drug therapy; Z95.5 Presence of coronary angioplasty implant and graft
CPT/HCPCS: 71046; 80048; 80053; 82550; 82552; 83735; 83880; 84443; 84484; 85025; 85610; 85730; 93005; 93306; 96360; J1650; J7040